=== PATIENT | male | born 1995 | race Two or more races ===

== ENCOUNTER 2018-07-17 06:05 | Day surgery (SDC) | payer OTHER ==
[~2018-07-17] VITALS: Ht 170.2 cm; Wt 89.4 kg
[2018-07-17] MEDS ORDERED: diphenhdrAMINE HCL 50 MG/1 ML VL ONE (08:08)
[2018-07-17] MEDS ORDERED: LIDOCAINE VISCOUS 2% 15ML UD ONE (08:08)
[2018-07-17 08:43] LABS: Basophils # (auto) 0 uL; Eosinophils # (auto) 0.2 uL; Eosinophils % (auto) 4.9 % (0.0-7.0); Hematocrit 43.8 % (41.0-53.0); Hemoglobin 14.9 g/dL (13.5-17.5); Lymphocytes % (auto) 40.9 % (10.0-50.0); Mean Corpuscular Hemoglobin 31.2 pg (28.0-32.0); Mean Corpuscular Volume 91.6 fL (80.0-100.0); Monocytes # (auto) 0.4 uL; Monocytes % (auto) 8.1 % (0.0-12.0); Neutrophils # (auto) 2.2 uL; Neutrophils % (auto) 45.1 % (37.0-80.0); Platelet Count (auto) 230 10^3/uL (140-450); Red Blood Cells 4.79 10^6/uL (4.5-5.90); Red Cell Distribution Width 12.5 % (11.8-14.3); White Blood Cell 4.8 10^3/uL (4.4-10.8)
[2018-07-17 08:56] LABS: INR 1.12 (0.9-1.15); Partial Thromboplastin Time 29.1 sec (23.78-33.04); Prothrombin Time 11.9 sec (9.27-12.13)
[2018-07-17] MEDS: fentaNYL CITRATE 100 MCG/2 ML VL ONE ×2 (09:26→09:29)
[2018-07-17] MEDS: MIDAZOLAM HCL 5 MG/ML-1ML VIAL ONE ×2 (09:26→09:29)
[2018-07-17 09:55] VITALS: BP 118/71
== END 2018-07-17 10:07 | disposition home or self-care (01) ==
LOC: GI 06:05
PROVIDERS: ATTEND Internal Medicine Gastroenterology
DX: K29.60 Other gastritis without bleeding (principal); F20.9 Schizophrenia, unspecified; Z79.899 Other long term (current) drug therapy; Z68.30 Body mass index [BMI] 30.0-30.9, adult
CPT/HCPCS: 36415; 43239; 85025; 85610; 85730; 88305; 88342; A6257; J1200; J2250; J3010; J7030